=== PATIENT | male | born 1950 | race Hispanic/Latino ===

== ENCOUNTER 2017-10-26 09:28 | Outpatient (CLI) | payer MEDICARE, BC ==
--- NOTE | 2017-10-26 11:41 | MRI ---
MRI LEFT ANKLE WITHOUT CONTRAST: Date: 10/26/17 HISTORY: M25.572, S90.922. Pain. COMPARISON: Radiographs dated 10/09/17. FINDINGS: Ligaments: The ATFL and PITFL are intact. ATFL is thickened, likely from prior tear. CFL is also mildly thickene d. There is a small ossicle of the anterior deep deltoid ligament suggesting prior injury. There is also a small ossicle of ATFL indicating prior injury. Bones: There is a large anterior spur of the talar neck with an adjacent spur of the anterior tibia. Edema i n the adjacent fat. Os peroneus is seen. There is advanced degenerative disease of the 3rd and 4th tarsometatarsal joints, worse at the 2nd ta rsometatarsal joint with large subchondral cysts and erosions. Mild degenerative disease of the navic ular medial cuneiform joint with subchondral cysts and early erosions. There is a focal area of T2 signal hyperintensity within the 4th metatarsal proximal diaphysis, which may reflect an old infarction. Tendons: Peroneus brevis and peroneus longus appear relatively unremarkable. Spring ligament is intact. The short and long plantar calcaneal ligaments are intact. Tendons: Achilles tendon is intact and appears normal. Muscles: There is some edema and some fatty infiltration of the soleus muscle. There is also edema within the adductor hallucis. There is also moderate edema of the flexor and other intrinsic muscles of the feet . Mild edema within the extensor digitorum brevis. Interosseous muscles also have some edema. IMPRESSION: 1. 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 Also, moderate degenerative disease of the 3rd and 4th tarsometatarsal joints. 2. 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 Foot MRI may be beneficial. 3. Multifocal edema of the musculature of the midfoot and hindfoot. This can be seen with post-traum atic reflex sympathetic dystrophy. 4. Evidence of prior injury to the deep deltoid ligament, ATFL, and CFL. 5. Mild tenosynovitis of the extensor digitorum longus tendon, which is abnormal. 6. Some mild fatty atrophy of the soleus muscle. 7. Large anterior spur of the talar neck as well as anterior spur of the tibia, with some edema in t he adjacent fat, can be seen with anterior impingement. POS: [facility]
== END 2017-10-26 09:29 | disposition home or self-care (01) ==
LOC: SCSMRI 09:28
PROVIDERS: ATTEND Podiatrist Foot & Ankle Surgery
DX: S99.912A Unspecified injury of left ankle, initial encounter (principal); R60.9 Edema, unspecified; M62.50 Muscle wasting and atrophy, not elsewhere classified, unspecified site; M76.42 Tibial collateral bursitis [Pellegrini-Stieda], left leg; M19.072 Primary osteoarthritis, left ankle and foot; M65.872 Other synovitis and tenosynovitis, left ankle and foot

== ENCOUNTER 2021-12-01 14:22 | Emergency (ER) | payer MEDICARE, BC ==
[2021-12-01 16:32] LABS: #Eosinphils 0.3 thou/uL (0.0-0.7); #Lymphocytes 2.2 thou/uL (1.20-3.40); #Monocytes 0.6 thou/uL (0.11-0.59); #Neutrophils 6.5 thou/uL (1.40-6.50); %Basophils 0.4 % (0.0-1.0); %Eosinophils 2.8 % (0.0-10.0); %Lymphocytes 22.4 % (21.0-51.0); %Monocytes 6.5 % (0.0-10.0); %Neutrophils 67.9 % (42.0-75.0); Hemoglobin 10.9 g/dL (14.0-18.0); Mean Corpuscular HGB CONC 32.6 g/dL (32.0-36.0); Mean Corpuscular Hemoglobin 29.8 pg (27.0-31.0); Mean Corpuscular Volume 91.6 fL (78.0-98.0); Mean Platelet Volume 7.4 fL (7.4-10.4); Platelet Count 200 thou/uL (130-400); RBC Distribution Width 15.3 % (11.5-14.5); Red Blood Cell (RBC) Count 3.65 mill/uL (4.70-6.10); White Blood Cell (WBC) Count 9.6 thou/uL (4.8-10.8)
[2021-12-01 16:55] LABS: ALT (SGPT) 12 U/L (8-55); AST (SGOT) 8 U/L (5-34); Albumin 3.6 g/dL (3.4-4.8); Alkaline Phosphatase 82 U/L (40-110); Anion Gap 11 mmol/L (10-20); BUN (Urea Nitrogen) 67 mg/dL (8.4-25.7); Bilirubin, Total 0.3 mg/dL (0.2-1.2); Calc. Creatinine Clearance 0 mL/min (70-130); Calcium 8.9 mg/dL (7.8-10.44); Carbon Dioxide 16 mmol/L (23-31); Chloride 117 mmol/L (98-107); Globulin 3.8 g/dL (2.4-3.5); Glucose 86 mg/dL (83-110); Potassium 5.8 mmol/L (3.5-5.1); Protein, Total 7.4 g/dL (5.8-8.1); Sodium 138 mmol/L (136-145)
== END 2021-12-01 20:17 | disposition home or self-care (01) ==
LOC: ERS 14:22
DX: E87.5 Hyperkalemia (principal); E78.5 Hyperlipidemia, unspecified; I10 Essential (primary) hypertension; Z85.51 Personal history of malignant neoplasm of bladder; I25.2 Old myocardial infarction
CPT/HCPCS: 36415; 80053; 84484; 85025; 93005

== ENCOUNTER 2022-07-12 19:00 | Outpatient (CLI) | payer MEDICARE, BC | END 2022-07-12 19:01 | disposition home or self-care (01) | LOC: SLEEPLAB 19:00 | PROVIDERS: ATTEND Physician Assistant | DX: G47.33 Obstructive sleep apnea (adult) (pediatric) (principal); R06.83 Snoring; I27.20 Pulmonary hypertension, unspecified; I11.0 Hypertensive heart disease with heart failure; I50.9 Heart failure, unspecified; I25.10 Atherosclerotic heart disease of native coronary artery without angina pectoris; G47.61 Periodic limb movement disorder | CPT/HCPCS: 95810 ==

== ENCOUNTER 2023-07-12 11:55 | Inpatient (IN) | payer MEDICARE, BC ==
[2023-07-12 12:24] LABS: #Basophils 0.1 thou/uL (0.0-0.2); #Eosinphils 0.3 thou/uL (0.0-0.7); #Monocytes 0.6 thou/uL (0.11-0.59); #Neutrophils 6.4 thou/uL (1.40-6.50); %Basophils 0.7 % (0.0-1.0); %Eosinophils 2.8 % (0.0-10.0); %Lymphocytes 18.6 % (21.0-51.0); %Monocytes 6.5 % (0.0-10.0); %Neutrophils 71.2 % (42.0-75.0); Hematocrit 33.7 % (42.0-52.0); Hemoglobin 10.6 g/dL (14.0-18.0); Mean Corpuscular HGB CONC 31.5 g/dL (32.0-36.0); Mean Corpuscular Hemoglobin 29.7 pg (27.0-31.0); Mean Corpuscular Volume 94.4 fl (78.0-98.0); Mean Platelet Volume 10.7 fL (7.4-10.4); Platelet Count 171 10x3/uL (130-400); RBC Distribution Width 16.9 % (11.5-14.5); Red Blood Cell (RBC) Count 3.57 mill/uL (4.70-6.10)
[2023-07-12 12:51] LABS: ALT (SGPT) 265 U/L (8-55); AST (SGOT) 237 U/L (5-34); Albumin 2.9 g/dL (3.4-4.8); Alkaline Phosphatase 256 U/L (40-110); Anion Gap 14 mmol/L (10-20); BUN (Urea Nitrogen) 115 mg/dL (8.4-25.7); Bilirubin, Total 0.5 mg/dL (0.2-1.2); Calc. Creatinine Clearance 0 mL/min (70-130); Calcium 8.1 mg/dL (7.8-10.44); Carbon Dioxide 11 mmol/L (23-31); Chloride 119 mmol/L (98-107); Estimated GFR 11; Globulin 3.8 g/dL (2.4-3.5); Glucose 86 mg/dL (83-110); Potassium 5.8 mmol/L (3.5-5.1); Protein, Total 6.7 g/dL (5.8-8.1); Sodium 138 mmol/L (136-145)
[2023-07-12] MEDS ORDERED: Glucagon 1 MG/ML KIT IM PRN (14:21)
[2023-07-12] MEDS ORDERED: Dextrose 5% in Water 1,000 ML IV PRN (14:21)
[2023-07-12] MEDS ORDERED: Dextrose 50% Abboject 50 ML SYRINGE SLOW IVP PRN (14:21)
[2023-07-12] MEDS ORDERED: HumaLOG 300 UNITS/3 ML VIAL SC PRN (14:21)
[2023-07-12 15:57] LABS: HBSAB Concentration Less than 8.00 mIU/mL; HBSAg Index 0.17 S/CO (0-0.99); HIV (1/2) Antibody/Antigen Non-Reactive (NonReactive); HIV 1/2 INDEX 0.12 S/CO (<1.00); Hep A IgM AB Non-Reactive S/CO (NonReactive); Hep A IgM S/CO 0.13 S/CO (0-0.79); Hep B Core Total Ab Non-Reactive (NonReactive); Hep B Core Total Index 0.14 S/CO (0-0.79); Hep B Surf AB Non-Reactive (NonReactive); Hep B Surf Ag Non-Reactive S/CO (NonReactive); Hep C IgG Ab Non-Reactive S/CO (NonReactive); Hep C Index 0.25 S/CO (0-0.79)
[2023-07-12] MEDS ORDERED: NIFEdipine XL 30 MG ER.TAB PO SCH (16:30)
[2023-07-12] MEDS: Icosapent Ethyl 1 GM CAPSULE PO SCH (18:20)
[2023-07-12] MEDS ORDERED: HumaLOG 300 UNITS/3 ML VIAL SC SCH (18:45)
[2023-07-12 19:01] LABS: Syphilis Antibody Nonreactive (Nonreactive); Syphilis Antibody Index 0.14 S/CO (<1.00 Non-Reactive)
[2023-07-12] MEDS: EPOETIN ALFA-EPBX (ESRD) 10,000 UNITS/ML VIAL SC SCH (19:01)
[2023-07-12] MEDS: Fluticasone Propionate Nasal Spray 16 gm Bottle NASAL SCH (20:55)
[2023-07-12] MEDS: Betamethasone 0.1% Cream 15 GM TUBE TOP SCH (20:55)
[2023-07-12] MEDS: Heparin 5,000 UNITS/ML VIAL SC SCH (20:58)
[2023-07-12] MEDS ORDERED: Insulin Glargine 30 UNITS/0.3 ML VIAL SC SCH ×2 (21:00)
[2023-07-12] MEDS ORDERED: Hydrocortisone 2.5% Cream 30 GM TUBE TOP SCH (21:00)
[2023-07-13 01:19] LABS: Anion Gap 13 mmol/L (10-20); BUN (Urea Nitrogen) 117 mg/dL (8.4-25.7); Calc. Creatinine Clearance 18 mL/min (70-130); Calcium 7.8 mg/dL (7.8-10.44); Carbon Dioxide 10 mmol/L (23-31); Chloride 123 mmol/L (98-107); Estimated GFR 12; Glucose 92 mg/dL (83-110); Potassium 5.5 mmol/L (3.5-5.1); Sodium 140 mmol/L (136-145)
[2023-07-13 05:13] LABS: #Basophils 0.1 thou/uL (0.0-0.2); #Eosinphils 0.3 thou/uL (0.0-0.7); #Monocytes 0.6 thou/uL (0.11-0.59); #Neutrophils 6.4 thou/uL (1.40-6.50); %Basophils 0.8 % (0.0-1.0); %Eosinophils 3.8 % (0.0-10.0); %Lymphocytes 17.1 % (21.0-51.0); %Monocytes 6.7 % (0.0-10.0); %Neutrophils 71.2 % (42.0-75.0); Hematocrit 30.9 % (42.0-52.0); Hemoglobin 9.5 g/dL (14.0-18.0); Mean Corpuscular HGB CONC 30.7 g/dL (32.0-36.0); Mean Corpuscular Hemoglobin 29.1 pg (27.0-31.0); Mean Corpuscular Volume 94.8 fl (78.0-98.0); Mean Platelet Volume 10.2 fL (7.4-10.4); Platelet Count 152 10x3/uL (130-400); RBC Distribution Width 17.2 % (11.5-14.5); Red Blood Cell (RBC) Count 3.26 mill/uL (4.70-6.10)
[2023-07-13 05:42] LABS: ALT (SGPT) 215 U/L (8-55); AST (SGOT) 177 U/L (5-34); Albumin 2.7 g/dL (3.4-4.8); Alkaline Phosphatase 237 U/L (40-110); Anion Gap 11 mmol/L (10-20); BUN (Urea Nitrogen) 113 mg/dL (8.4-25.7); Bilirubin, Total 0.3 mg/dL (0.2-1.2); Calc. Creatinine Clearance 18 mL/min (70-130); Calcium 7.7 mg/dL (7.8-10.44); Carbon Dioxide 11 mmol/L (23-31); Chloride 123 mmol/L (98-107); Estimated GFR 11; Globulin 3.2 g/dL (2.4-3.5); Glucose 77 mg/dL (83-110); Potassium 5.7 mmol/L (3.5-5.1); Protein, Total 5.9 g/dL (5.8-8.1); Sodium 139 mmol/L (136-145)
[2023-07-13] MEDS: Levothyroxine Sodium 75 MCG TAB PO SCH (06:24)
[2023-07-13] MEDS ORDERED: Tuberculin PPD 0.1 ML VIAL I-DERMAL SCH (08:00)
[2023-07-13] MEDS ORDERED: HumaLOG 300 UNITS/3 ML VIAL SC SCH ×2 (08:00)
[2023-07-13] MEDS: Aspirin Chewable 81 MG TAB PO SCH (08:43)
[2023-07-13] MEDS: Icosapent Ethyl 1 GM CAPSULE PO SCH ×2 (08:43→17:32)
[2023-07-13] MEDS: HumaLOG 300 UNITS/3 ML VIAL SC SCH ×3 (08:44→17:33)
[2023-07-13] MEDS: Ferrous Sulfate 325 MG TAB PO SCH (08:44)
[2023-07-13] MEDS: Betamethasone 0.1% Cream 15 GM TUBE TOP SCH ×2 (08:45→20:08)
[2023-07-13] MEDS: Fluticasone Propionate Nasal Spray 16 gm Bottle NASAL SCH ×2 (08:45→20:08)
[2023-07-13] MEDS: Heparin 5,000 UNITS/ML VIAL SC SCH ×3 (08:45→20:41)
[2023-07-13] MEDS: NIFEdipine XL 30 MG ER.TAB PO SCH (08:51)
[2023-07-13] MEDS ORDERED: Sodium Bicarbonate Tab 325 MG TAB PO SCH (09:00)
[2023-07-13] MEDS ORDERED: Insulin Glargine 30 UNITS/0.3 ML VIAL SC SCH ×2 (09:00)
[2023-07-13] MEDS ORDERED: EPINEPHrine 1 MG/ML VIAL ONE (10:35)
[2023-07-13] MEDS ORDERED: Lidocaine 2% PF 5 ML VIAL ONE ×3 (10:35→11:56)
[2023-07-13] MEDS ORDERED: Heparin 10,000 UNITS/ 10 ML VIAL ONE (10:35)
[2023-07-13] MEDS ORDERED: Bupivacaine PF 0.5% 30 ML VIAL ONE ×2 (10:36→11:54)
[2023-07-13] MEDS ORDERED: CEFAZOLIN 2 GM VIAL ONE (12:31)
[2023-07-13] MEDS ORDERED: Sodium Chloride 0.9% 100 ML ONE (12:32)
[2023-07-13] MEDS ORDERED: fentaNYL 50 mcg/mL 1 mL Vial ONE (12:33)
[2023-07-13] MEDS ORDERED: Propofol 500 MG/50 ML VIAL ONE (12:33)
[2023-07-13] MEDS ORDERED: Famotidine/PF 20 mg/2ml Vial ONE (12:33)
[2023-07-13] MEDS ORDERED: Midazolam HCl 2 mg/2 ml Vial ONE (12:34)
[2023-07-13] MEDS ORDERED: PHENYLEPHRINE-NS 100 MCG/ML 10 ML SYRINGE ONE (12:48)
[2023-07-13] MEDS ORDERED: Ondansetron PF 4 MG/2 ML Vial ONE (12:52)
[2023-07-13] MEDS ORDERED: ePHEDrine Sulfate 50 MG/10 ML VIAL ONE (12:52)
[2023-07-13] MEDS ORDERED: Ondansetron HCl/PF 4 MG/2 ML Vial IVP PRN (13:22)
[2023-07-13] MEDS ORDERED: Promethazine HCl 25 MG/ML VIAL IM PRN (13:22)
[2023-07-13] MEDS: Insulin Glargine 30 UNITS/0.3 ML VIAL SC SCH (21:14)
[2023-07-14 06:01] LABS: #Basophils 0.1 thou/uL (0.0-0.2); #Eosinphils 0.3 thou/uL (0.0-0.7); #Monocytes 0.7 thou/uL (0.11-0.59); #Neutrophils 6.1 thou/uL (1.40-6.50); %Basophils 0.7 % (0.0-1.0); %Eosinophils 3.9 % (0.0-10.0); %Lymphocytes 16.6 % (21.0-51.0); %Monocytes 7.8 % (0.0-10.0); %Neutrophils 70.5 % (42.0-75.0); Hematocrit 29.6 % (42.0-52.0); Mean Corpuscular HGB CONC 30.4 g/dL (32.0-36.0); Mean Corpuscular Hemoglobin 28.8 pg (27.0-31.0); Mean Corpuscular Volume 94.6 fl (78.0-98.0); Mean Platelet Volume 11.1 fL (7.4-10.4); Platelet Count 150 10x3/uL (130-400); RBC Distribution Width 17.2 % (11.5-14.5); Red Blood Cell (RBC) Count 3.13 mill/uL (4.70-6.10); White Blood Cell (WBC) Count 8.7 10x3/uL (4.8-10.8)
[2023-07-14] MEDS: Levothyroxine Sodium 75 MCG TAB PO SCH (06:07)
[2023-07-14 06:25] LABS: ALT (SGPT) 161 U/L (8-55); AST (SGOT) 128 U/L (5-34); Albumin 2.6 g/dL (3.4-4.8); Alkaline Phosphatase 210 U/L (40-110); Anion Gap 12 mmol/L (10-20); BUN (Urea Nitrogen) 92 mg/dL (8.4-25.7); Bilirubin, Total 0.4 mg/dL (0.2-1.2); Calc. Creatinine Clearance 20 mL/min (70-130); Calcium 7.7 mg/dL (7.8-10.44); Carbon Dioxide 13 mmol/L (23-31); Chloride 119 mmol/L (98-107); Estimated GFR 14; Globulin 3.1 g/dL (2.4-3.5); Glucose 140 mg/dL (83-110); Protein, Total 5.7 g/dL (5.8-8.1); Sodium 139 mmol/L (136-145)
[2023-07-14] MEDS: HumaLOG 300 UNITS/3 ML VIAL SC SCH ×2 (11:38→17:31)
[2023-07-14] MEDS: Icosapent Ethyl 1 GM CAPSULE PO SCH ×2 (12:06→18:29)
[2023-07-14] MEDS: Aspirin Chewable 81 MG TAB PO SCH (12:06)
[2023-07-14] MEDS: Ferrous Sulfate 325 MG TAB PO SCH (12:06)
[2023-07-14] MEDS: Fluticasone Propionate Nasal Spray 16 gm Bottle NASAL SCH ×2 (12:07→21:59)
[2023-07-14] MEDS: Heparin 5,000 UNITS/ML VIAL SC SCH ×3 (12:07→22:00)
[2023-07-14] MEDS: Betamethasone 0.1% Cream 15 GM TUBE TOP SCH ×2 (12:07→22:00)
[2023-07-14] MEDS: Insulin Glargine 30 UNITS/0.3 ML VIAL SC SCH ×2 (12:09→21:58)
[2023-07-14] MEDS: NIFEdipine XL 30 MG ER.TAB PO SCH (12:09)
[2023-07-14] MEDS ORDERED: Polyethylene Glycol 3350 17 GM Packet PO PRN (12:25)
[2023-07-14] MEDS: Docusate 100 MG CAP PO PRN (16:01)
[2023-07-15 04:27] LABS: #Basophils 0.1 thou/uL (0.0-0.2); #Eosinphils 0.5 thou/uL (0.0-0.7); #Monocytes 0.7 thou/uL (0.11-0.59); #Neutrophils 5.9 thou/uL (1.40-6.50); %Basophils 0.7 % (0.0-1.0); %Lymphocytes 18.8 % (21.0-51.0); %Neutrophils 66.2 % (42.0-75.0); Hematocrit 27.4 % (42.0-52.0); Hemoglobin 8.7 g/dL (14.0-18.0); Mean Corpuscular HGB CONC 31.8 g/dL (32.0-36.0); Mean Corpuscular Hemoglobin 29.5 pg (27.0-31.0); Mean Corpuscular Volume 92.9 fl (78.0-98.0); Mean Platelet Volume 10.8 fL (7.4-10.4); Platelet Count 153 10x3/uL (130-400); RBC Distribution Width 16.9 % (11.5-14.5); Red Blood Cell (RBC) Count 2.95 mill/uL (4.70-6.10); White Blood Cell (WBC) Count 8.9 10x3/uL (4.8-10.8)
[2023-07-15 04:52] LABS: ALT (SGPT) 119 U/L (8-55); AST (SGOT) 138 U/L (5-34); Albumin 2.4 g/dL (3.4-4.8); Alkaline Phosphatase 196 U/L (40-110); Anion Gap 12 mmol/L (10-20); BUN (Urea Nitrogen) 66 mg/dL (8.4-25.7); Bilirubin, Total 0.4 mg/dL (0.2-1.2); Calc. Creatinine Clearance 24 mL/min (70-130); Calcium 7.6 mg/dL (7.8-10.44); Carbon Dioxide 18 mmol/L (23-31); Chloride 115 mmol/L (98-107); Estimated GFR 16; Globulin 3.2 g/dL (2.4-3.5); Glucose 128 mg/dL (83-110); Potassium 4.3 mmol/L (3.5-5.1); Protein, Total 5.6 g/dL (5.8-8.1); Sodium 141 mmol/L (136-145)
[2023-07-15] MEDS: Levothyroxine Sodium 75 MCG TAB PO SCH (05:49)
[2023-07-15] MEDS: Fluticasone Propionate Nasal Spray 16 gm Bottle NASAL SCH ×2 (08:56→21:29)
[2023-07-15] MEDS: Ferrous Sulfate 325 MG TAB PO SCH (08:58)
[2023-07-15] MEDS: Aspirin Chewable 81 MG TAB PO SCH (08:58)
[2023-07-15] MEDS: NIFEdipine XL 30 MG ER.TAB PO SCH (08:59)
[2023-07-15] MEDS: Icosapent Ethyl 1 GM CAPSULE PO SCH (08:59)
[2023-07-15] MEDS: Betamethasone 0.1% Cream 15 GM TUBE TOP SCH ×2 (08:59→21:29)
[2023-07-15] MEDS: Heparin 5,000 UNITS/ML VIAL SC SCH ×3 (09:00→21:28)
[2023-07-15] MEDS: Insulin Glargine 30 UNITS/0.3 ML VIAL SC SCH ×2 (09:49→21:29)
[2023-07-15] MEDS ORDERED: Heparin 10,000 UNITS/ 10 ML VIAL ONE (10:15)
[2023-07-15] MEDS ORDERED: NIFEdipine XL 30 MG ER.TAB PO SCH (10:27)
[2023-07-15] MEDS ORDERED: Activase 2 MG VIAL CATH SCH ×2 (16:15)
[2023-07-15] MEDS ORDERED: Sterile Water 10 ML VIAL IVP SCH (16:15)
[2023-07-16] MEDS: Levothyroxine Sodium 75 MCG TAB PO SCH (05:15)
[2023-07-16 05:29] LABS: #Basophils 0.1 thou/uL (0.0-0.2); #Eosinphils 0.6 thou/uL (0.0-0.7); #Monocytes 0.7 thou/uL (0.11-0.59); #Neutrophils 5.6 thou/uL (1.40-6.50); %Basophils 0.6 % (0.0-1.0); %Eosinophils 7.3 % (0.0-10.0); %Lymphocytes 19.9 % (21.0-51.0); %Monocytes 8.1 % (0.0-10.0); %Neutrophils 63.9 % (42.0-75.0); Hematocrit 26.7 % (42.0-52.0); Hemoglobin 8.5 g/dL (14.0-18.0); Mean Corpuscular HGB CONC 31.8 g/dL (32.0-36.0); Mean Corpuscular Hemoglobin 29.5 pg (27.0-31.0); Mean Corpuscular Volume 92.7 fl (78.0-98.0); Mean Platelet Volume 9.7 fL (7.4-10.4); Platelet Count 140 10x3/uL (130-400); Red Blood Cell (RBC) Count 2.88 mill/uL (4.70-6.10); White Blood Cell (WBC) Count 8.7 10x3/uL (4.8-10.8)
[2023-07-16 05:52] LABS: ALT (SGPT) 99 U/L (8-55); AST (SGOT) 164 U/L (5-34); Albumin 2.3 g/dL (3.4-4.8); Alkaline Phosphatase 201 U/L (40-110); Anion Gap 11 mmol/L (10-20); BUN (Urea Nitrogen) 42 mg/dL (8.4-25.7); Bilirubin, Total 0.4 mg/dL (0.2-1.2); Calc. Creatinine Clearance 28 mL/min (70-130); Calcium 7.3 mg/dL (7.8-10.44); Carbon Dioxide 22 mmol/L (23-31); Chloride 108 mmol/L (98-107); Estimated GFR 20; Globulin 3.1 g/dL (2.4-3.5); Glucose 100 mg/dL (83-110); Protein, Total 5.4 g/dL (5.8-8.1); Sodium 137 mmol/L (136-145)
[2023-07-16] MEDS: Aspirin Chewable 81 MG TAB PO SCH (08:53)
[2023-07-16] MEDS: Insulin Glargine 30 UNITS/0.3 ML VIAL SC SCH ×2 (08:54→23:32)
[2023-07-16] MEDS: Ferrous Sulfate 325 MG TAB PO SCH (08:56)
[2023-07-16] MEDS: Icosapent Ethyl 1 GM CAPSULE PO SCH ×3 (08:56→17:49)
[2023-07-16] MEDS: Betamethasone 0.1% Cream 15 GM TUBE TOP SCH ×2 (08:56→21:07)
[2023-07-16] MEDS: Heparin 5,000 UNITS/ML VIAL SC SCH ×3 (08:57→21:07)
[2023-07-16] MEDS: Fluticasone Propionate Nasal Spray 16 gm Bottle NASAL SCH ×2 (08:57→21:07)
[2023-07-16] MEDS: Docusate 100 MG CAP PO PRN (09:06)
[2023-07-16] MEDS ORDERED: Sterile Water 10 ML VIAL IVP SCH (09:45)
[2023-07-16] MEDS ORDERED: Activase 2 MG VIAL CATH SCH (09:45)
[2023-07-16] MEDS: HumaLOG 300 UNITS/3 ML VIAL SC PRN (19:09)
[2023-07-17 04:26] LABS: #Basophils 0.1 thou/uL (0.0-0.2); #Eosinphils 0.7 thou/uL (0.0-0.7); #Monocytes 0.9 thou/uL (0.11-0.59); #Neutrophils 5.8 thou/uL (1.40-6.50); %Basophils 0.7 % (0.0-1.0); %Eosinophils 7.5 % (0.0-10.0); %Lymphocytes 20.9 % (21.0-51.0); %Monocytes 9.2 % (0.0-10.0); %Neutrophils 61.3 % (42.0-75.0); Hematocrit 27.6 % (42.0-52.0); Hemoglobin 8.6 g/dL (14.0-18.0); Mean Corpuscular HGB CONC 31.2 g/dL (32.0-36.0); Mean Corpuscular Hemoglobin 29.1 pg (27.0-31.0); Mean Corpuscular Volume 93.2 fl (78.0-98.0); Mean Platelet Volume 10.5 fL (7.4-10.4); Platelet Count 149 10x3/uL (130-400); RBC Distribution Width 16.8 % (11.5-14.5); Red Blood Cell (RBC) Count 2.96 mill/uL (4.70-6.10); White Blood Cell (WBC) Count 9.5 10x3/uL (4.8-10.8)
[2023-07-17 04:50] LABS: Iron 47 ug/dL (65-175); Iron Binding Capacity, Total 178 mcg/dL (261-462)
[2023-07-17 04:54] LABS: ALT (SGPT) 107 U/L (8-55); AST (SGOT) 175 U/L (5-34); Albumin 2.5 g/dL (3.4-4.8); Alkaline Phosphatase 212 U/L (40-110); Anion Gap 13 mmol/L (10-20); BUN (Urea Nitrogen) 49 mg/dL (8.4-25.7); Bilirubin, Total 0.5 mg/dL (0.2-1.2); Calc. Creatinine Clearance 24 mL/min (70-130); Calcium 7.4 mg/dL (7.8-10.44); Carbon Dioxide 21 mmol/L (23-31); Chloride 107 mmol/L (98-107); Estimated GFR 17; Globulin 3.1 g/dL (2.4-3.5); Glucose 116 mg/dL (83-110); Iron 46 ug/dL (65-175); Iron Binding Capacity, Total 174 mcg/dL (261-462); Potassium 4.4 mmol/L (3.5-5.1); Protein, Total 5.6 g/dL (5.8-8.1); Sodium 137 mmol/L (136-145)
[2023-07-17] MEDS: Levothyroxine Sodium 75 MCG TAB PO SCH (05:50)
[2023-07-17] MEDS: Fluticasone Propionate Nasal Spray 16 gm Bottle NASAL SCH ×2 (08:49→20:16)
[2023-07-17] MEDS: Heparin 5,000 UNITS/ML VIAL SC SCH ×3 (08:49→20:16)
[2023-07-17] MEDS: Insulin Glargine 30 UNITS/0.3 ML VIAL SC SCH (08:50)
[2023-07-17] MEDS: Icosapent Ethyl 1 GM CAPSULE PO SCH ×2 (08:50→16:34)
[2023-07-17] MEDS: Ferrous Sulfate 325 MG TAB PO SCH (08:52)
[2023-07-17] MEDS: Aspirin Chewable 81 MG TAB PO SCH (08:52)
[2023-07-17] MEDS: Betamethasone 0.1% Cream 15 GM TUBE TOP SCH ×2 (08:57→20:16)
[2023-07-17] MEDS ORDERED: Insulin Glargine 30 UNITS/0.3 ML VIAL SC SCH ×2 (08:59→09:00)
[2023-07-17] MEDS ORDERED: Iron Sucrose Complex 200 MG in Sodium Chloride 0.9% 100 ML IVPB SCH (09:15)
[2023-07-17] MEDS ORDERED: Iron, Sodium Ferric Gluconate 250 MG in Sodium Chloride 0.9% 250 ML 250 ML IVPB SCH (09:15)
[2023-07-17 13:07] VITALS: BMI 31.2
[2023-07-17] MEDS: HumaLOG 300 UNITS/3 ML VIAL SC PRN ×2 (14:48→17:59)
[2023-07-18] MEDS: Levothyroxine Sodium 75 MCG TAB PO SCH (03:37)
[2023-07-18 04:53] LABS: #Basophils 0.1 thou/uL (0.0-0.2); #Eosinphils 0.7 thou/uL (0.0-0.7); #Monocytes 0.8 thou/uL (0.11-0.59); #Neutrophils 6.1 thou/uL (1.40-6.50); %Basophils 0.6 % (0.0-1.0); %Lymphocytes 19.7 % (21.0-51.0); %Monocytes 8.6 % (0.0-10.0); %Neutrophils 63.5 % (42.0-75.0); Hematocrit 26.4 % (42.0-52.0); Hemoglobin 8.3 g/dL (14.0-18.0); Mean Corpuscular HGB CONC 31.4 g/dL (32.0-36.0); Mean Corpuscular Hemoglobin 29.9 pg (27.0-31.0); Mean Platelet Volume 11.3 fL (7.4-10.4); Platelet Count 155 10x3/uL (130-400); RBC Distribution Width 16.6 % (11.5-14.5); Red Blood Cell (RBC) Count 2.78 mill/uL (4.70-6.10); White Blood Cell (WBC) Count 9.6 10x3/uL (4.8-10.8)
[2023-07-18 05:20] LABS: ALT (SGPT) 102 U/L (8-55); AST (SGOT) 139 U/L (5-34); Albumin 2.4 g/dL (3.4-4.8); Alkaline Phosphatase 216 U/L (40-110); Anion Gap 13 mmol/L (10-20); BUN (Urea Nitrogen) 35 mg/dL (8.4-25.7); Bilirubin, Total 0.5 mg/dL (0.2-1.2); Calc. Creatinine Clearance 27 mL/min (70-130); Calcium 7.5 mg/dL (7.8-10.44); Carbon Dioxide 23 mmol/L (23-31); Chloride 104 mmol/L (98-107); Estimated GFR 19; Globulin 3.1 g/dL (2.4-3.5); Glucose 154 mg/dL (83-110); Protein, Total 5.5 g/dL (5.8-8.1); Sodium 136 mmol/L (136-145)
[2023-07-18] MEDS ORDERED: Iron Sucrose Complex 200 MG in Sodium Chloride 0.9% 100 ML IVPB SCH (08:30)
[2023-07-18] MEDS ORDERED: Iron, Sodium Ferric Gluconate 250 MG in Sodium Chloride 0.9% 250 ML 250 ML IVPB SCH (08:45)
[2023-07-18] MEDS: Icosapent Ethyl 1 GM CAPSULE PO SCH ×2 (09:48→17:20)
[2023-07-18] MEDS: Aspirin Chewable 81 MG TAB PO SCH (09:48)
[2023-07-18] MEDS: Heparin 5,000 UNITS/ML VIAL SC SCH ×3 (09:49→20:49)
[2023-07-18] MEDS: Insulin Glargine 30 UNITS/0.3 ML VIAL SC SCH (09:49)
[2023-07-18] MEDS: Betamethasone 0.1% Cream 15 GM TUBE TOP SCH ×2 (09:50→20:48)
[2023-07-18] MEDS: Fluticasone Propionate Nasal Spray 16 gm Bottle NASAL SCH ×2 (09:50→20:48)
[2023-07-18] MEDS: Calcitriol 0.25 MCG CAP PO SCH (09:54)
[2023-07-18] MEDS: HumaLOG 300 UNITS/3 ML VIAL SC PRN (14:36)
[2023-07-18] MEDS: Docusate 100 MG CAP PO PRN (17:26)
[2023-07-19 05:27] LABS: #Basophils 0.1 thou/uL (0.0-0.2); #Eosinphils 0.7 thou/uL (0.0-0.7); #Monocytes 0.8 thou/uL (0.11-0.59); #Neutrophils 5.9 thou/uL (1.40-6.50); %Basophils 0.7 % (0.0-1.0); %Eosinophils 6.9 % (0.0-10.0); %Lymphocytes 22.8 % (21.0-51.0); %Monocytes 8.6 % (0.0-10.0); %Neutrophils 60.4 % (42.0-75.0); Hemoglobin 8.7 g/dL (14.0-18.0); Mean Corpuscular HGB CONC 31.1 g/dL (32.0-36.0); Mean Corpuscular Hemoglobin 29.3 pg (27.0-31.0); Mean Corpuscular Volume 94.3 fl (78.0-98.0); Mean Platelet Volume 9.8 fL (7.4-10.4); Platelet Count 145 10x3/uL (130-400); RBC Distribution Width 16.7 % (11.5-14.5); Red Blood Cell (RBC) Count 2.97 mill/uL (4.70-6.10); White Blood Cell (WBC) Count 9.8 10x3/uL (4.8-10.8)
[2023-07-19] MEDS: Levothyroxine Sodium 75 MCG TAB PO SCH (05:37)
[2023-07-19 05:55] LABS: ALT (SGPT) 102 U/L (8-55); AST (SGOT) 117 U/L (5-34); Albumin 2.5 g/dL (3.4-4.8); Alkaline Phosphatase 213 U/L (40-110); Anion Gap 12 mmol/L (10-20); BUN (Urea Nitrogen) 43 mg/dL (8.4-25.7); Bilirubin, Total 0.6 mg/dL (0.2-1.2); Calc. Creatinine Clearance 23 mL/min (70-130); Calcium 7.6 mg/dL (7.8-10.44); Carbon Dioxide 21 mmol/L (23-31); Chloride 106 mmol/L (98-107); Estimated GFR 16; Globulin 3.1 g/dL (2.4-3.5); Glucose 88 mg/dL (83-110); Potassium 4.9 mmol/L (3.5-5.1); Protein, Total 5.6 g/dL (5.8-8.1); Sodium 134 mmol/L (136-145)
[2023-07-19] MEDS: Fluticasone Propionate Nasal Spray 16 gm Bottle NASAL SCH (09:45)
[2023-07-19] MEDS: Icosapent Ethyl 1 GM CAPSULE PO SCH ×2 (09:46→17:43)
[2023-07-19] MEDS: Calcitriol 0.25 MCG CAP PO SCH (09:46)
[2023-07-19] MEDS: Insulin Glargine 30 UNITS/0.3 ML VIAL SC SCH (09:46)
[2023-07-19] MEDS: Aspirin Chewable 81 MG TAB PO SCH (09:46)
[2023-07-19] MEDS: Heparin 5,000 UNITS/ML VIAL SC SCH ×2 (09:46→17:43)
[2023-07-19] MEDS: Betamethasone 0.1% Cream 15 GM TUBE TOP SCH (09:53)
[2023-07-19] MEDS ORDERED: Heparin 10,000 UNITS/ 10 ML VIAL ONE (13:31)
[2023-07-19 19:25] VITALS: BP 137/78; TEMP 98
[2023-07-19] MEDS: EPOETIN ALFA-EPBX (ESRD) 10,000 UNITS/ML VIAL SC SCH (20:42)
== END 2023-07-19 21:00 | disposition home or self-care (01) | DRG 640 ==
LOC: ERS 11:55 → ERHOLD 13:59 → 2SW 17:38 → OBSVTOIN 07-13 15:13
PROVIDERS: ADMIT Family Medicine; ATTEND Family Medicine
PROC: 0JH63XZ Insertion of Tunneled Vascular Access Device into Chest Subcutaneous Tissue and Fascia, Percutaneous Approach (ICD-10-PCS; principal; 2023-07-13)
PROC: 02HV33Z Insertion of Infusion Device into Superior Vena Cava, Percutaneous Approach (ICD-10-PCS; 2023-07-13)
PROC: 3E033XZ Introduction of Vasopressor into Peripheral Vein, Percutaneous Approach (ICD-10-PCS; 2023-07-13)
PROC: 5A1D70Z Performance of Urinary Filtration, Intermittent, Less than 6 Hours Per Day (ICD-10-PCS; 2023-07-13)
PROC: 5A1D70Z Performance of Urinary Filtration, Intermittent, Less than 6 Hours Per Day (ICD-10-PCS; 2023-07-14)
PROC: 5A1D70Z Performance of Urinary Filtration, Intermittent, Less than 6 Hours Per Day (ICD-10-PCS; 2023-07-15)
PROC: 5A1D70Z Performance of Urinary Filtration, Intermittent, Less than 6 Hours Per Day (ICD-10-PCS; 2023-07-17)
DX: E87.5 Hyperkalemia (principal); J81.0 Acute pulmonary edema; N18.6 End stage renal disease; I13.2 Hypertensive heart and chronic kidney disease with heart failure and with stage 5 chronic kidney disease, or end stage renal disease; E44.0 Moderate protein-calorie malnutrition; N25.81 Secondary hyperparathyroidism of renal origin; I50.32 Chronic diastolic (congestive) heart failure; E87.21 Acute metabolic acidosis; E87.70 Fluid overload, unspecified; E78.5 Hyperlipidemia, unspecified; E11.22 Type 2 diabetes mellitus with diabetic chronic kidney disease; I25.10 Atherosclerotic heart disease of native coronary artery without angina pectoris; C67.9 Malignant neoplasm of bladder, unspecified; E03.9 Hypothyroidism, unspecified; D63.1 Anemia in chronic kidney disease; R74.01 Elevation of levels of liver transaminase levels; R53.81 Other malaise; D64.9 Anemia, unspecified; I87.2 Venous insufficiency (chronic) (peripheral); J30.9 Allergic rhinitis, unspecified; Z90.89 Acquired absence of other organs; Z95.1 Presence of aortocoronary bypass graft; Z79.899 Other long term (current) drug therapy; Z79.4 Long term (current) use of insulin; Z79.890 Hormone replacement therapy; Z98.890 Other specified postprocedural states
CPT/HCPCS: 36415; 36416; 71045; 76705; 80053; 82728; 83540; 83550; 83970; 84100; 85025; 86580; 86704; 86706; 86709; 86780; 86803; 87340; 87389; 90935; 93005; 96372; 97139; C1752; G0257; G0378; J0171; J1644; J1815; J2001; J2250; J2405; J2704; J2916; J3010; J3490; J7050; J7070; Q5105; S0020; S0028

== ENCOUNTER 2024-04-16 21:25 | Inpatient (IN) | payer MEDICARE, BC ==
[2024-04-16 22:46] VITALS: BMI 28.2
[2024-04-16] MEDS ORDERED: Dextrose 5% in Water 1,000 ML IV PRN (23:28)
[2024-04-16] MEDS ORDERED: Dextrose 50% Abboject 50 ML SYRINGE SLOW IVP PRN (23:28)
[2024-04-16] MEDS ORDERED: Glucagon 1 MG/ML KIT IM PRN (23:28)
[2024-04-17] MEDS: Morphine 2 MG/ML VIAL SLOW IVP PRN (00:11)
[2024-04-17] MEDS: Acetaminophen 325 MG TAB PO PRN (00:11)
[2024-04-17] MEDS: Gabapentin 300 MG CAP PO SCH ×2 (00:11→20:06)
[2024-04-17] MEDS ORDERED: Vancomycin Diaylsis Sliding Scale (Wt 71-99) FS SCH (00:15)
[2024-04-17] MEDS ORDERED: Morphine 2 MG/ML VIAL SLOW IVP PRN (00:18)
[2024-04-17] MEDS: Vancomycin HCl 750 MG in Sodium Chloride 0.9% 250 ML 250 ML IVPB SCH (00:25)
[2024-04-17] MEDS: Piperacillin/Tazobactam 3.375 GM in Sodium Chloride 0.9% 100 ML IVPB SCH (00:25)
[2024-04-17] MEDS: HYDROcodone/Acetaminophen 5/325 mg Tablet PO PRN (00:51)
[2024-04-17] MEDS ORDERED: Piperacillin/Tazobactam 2.25 GM in Sodium Chloride 0.9% 100 ML IVPB SCH (02:15)
[2024-04-17] MEDS: Vancomycin HCl 750 MG VIAL ONE (03:55)
[2024-04-17] MEDS: Morphine 2 MG/ML VIAL ONE (03:55)
[2024-04-17] MEDS: Gabapentin 300 MG CAP ONE (03:55)
[2024-04-17] MEDS: Acetaminophen 325 MG TAB ONE (03:55)
[2024-04-17] MEDS: Piperacillin/Tazobactam 3.375 GM VIAL ONE (03:55)
[2024-04-17] MEDS: HYDROcodone/Acetaminophen 5/325 mg Tablet ONE (03:56)
[2024-04-17] MEDS: Sodium Chloride 0.9% 100 ML ONE (03:56)
[2024-04-17 05:13] LABS: #Basophils 0.08 10x3/uL (0.0-0.2); %Basophils 0.6 % (0.0-1.0); %Eosinophils 0.5 % (0.0-10.0); %Lymphocytes 11.2 % (21.0-51.0); %Monocytes 7.5 % (0.0-10.0); %Neutrophils 79.7 % (42.0-75.0); Hematocrit 39.2 % (42.0-52.0); Hemoglobin 12.4 g/dL (14.0-18.0); Mean Corpuscular HGB CONC 31.6 g/dL (32.0-36.0); Mean Corpuscular Hemoglobin 30.9 pg (27.0-31.0); Mean Corpuscular Volume 97.8 fL (78.0-98.0); Platelet Count 181 10x3/uL (130-400); RBC Distribution Width 16.3 % (11.5-14.5); Red Blood Cell (RBC) Count 4.01 mill/uL (4.70-6.10)
[2024-04-17 05:32] LABS: ALT (SGPT) 35 U/L (8-55); AST (SGOT) 28 U/L (5-34); Albumin 2.6 g/dL (3.4-4.8); Alkaline Phosphatase 166 U/L (40-110); Anion Gap 16 mmol/L (10-20); BUN (Urea Nitrogen) 37 mg/dL (8.4-25.7); Bilirubin, Total 0.7 mg/dL (0.2-1.2); Calc. Creatinine Clearance 16 mL/min (70-130); Calcium 8.5 mg/dL (7.8-10.44); Carbon Dioxide 26 mmol/L (23-31); Chloride 98 mmol/L (98-107); Estimated GFR 12; Globulin 4.4 g/dL (2.4-3.5); Glucose 135 mg/dL (83-110); Potassium 4.5 mmol/L (3.5-5.1); Sodium 135 mmol/L (136-145)
[2024-04-17] MEDS: Levothyroxine Sodium 75 MCG TAB PO SCH (05:49)
[2024-04-17] MEDS: Isosorbide Mononitrate 30 MG ER.TAB PO SCH (08:57)
[2024-04-17] MEDS: Aspirin Chewable 81 MG TAB PO SCH (08:57)
[2024-04-17] MEDS: Heparin 5,000 UNITS/ML VIAL SC SCH (08:57)
[2024-04-17] MEDS: Insulin Lispro 100 UNIT/ML 10 ML VIAL SC SCH ×3 (08:57→18:32)
[2024-04-17] MEDS: NIFEdipine XL 30 MG ER.TAB PO SCH (08:58)
[2024-04-17] MEDS: Meloxicam 15 MG TAB PO SCH (08:59)
[2024-04-17] MEDS: fentaNYL 50 mcg/mL 1 mL Vial SLOW IVP PRN (09:00)
[2024-04-17] MEDS ORDERED: Gabapentin 300 MG CAP PO SCH (09:00)
[2024-04-17 10:35] LABS: HBSAB Concentration 43.83 mIU/mL; HBsAg Index 0.35 S/CO (0-0.99); Hep B Core Total Ab NONREACTIVE (NonReactive); Hep B Core Total Index 0.37 S/CO (0-0.79); Hep B Surf AB REACTIVE (NonReactive); Hep B Surf Ag NONREACTIVE S/CO (NonReactive); Hep C IgG Ab NONREACTIVE S/CO (NonReactive); Hep C Index 0.38 S/CO (0-0.79)
[2024-04-17] MEDS: Diazepam 5 MG TAB PO SCH (11:49)
[2024-04-17] MEDS: Insulin Lispro 100 UNIT/ML 10 ML VIAL SC PRN (20:16)
[2024-04-18 06:53] LABS: %Basophils 0.8 % (0.0-1.0); %Eosinophils 1.9 % (0.0-10.0); %Lymphocytes 13.2 % (21.0-51.0); %Monocytes 7.8 % (0.0-10.0); %Neutrophils 75.9 % (42.0-75.0); Hematocrit 38.6 % (42.0-52.0); Hemoglobin 11.8 g/dL (14.0-18.0); Mean Corpuscular HGB CONC 30.6 g/dL (32.0-36.0); Mean Corpuscular Hemoglobin 30.9 pg (27.0-31.0); Mean Platelet Volume 9.7 fL (7.4-10.4); Platelet Count 174 10x3/uL (130-400); RBC Distribution Width 16.3 % (11.5-14.5); Red Blood Cell (RBC) Count 3.82 mill/uL (4.70-6.10)
[2024-04-18 07:40] LABS: Vancomycin, Trough 14.1 ug/mL
[2024-04-18 07:43] LABS: ALT (SGPT) 40 U/L (8-55); AST (SGOT) 33 U/L (5-34); Albumin 2.2 g/dL (3.4-4.8); Alkaline Phosphatase 176 U/L (40-110); Anion Gap 17 mmol/L (10-20); BUN (Urea Nitrogen) 54 mg/dL (8.4-25.7); Bilirubin, Total 0.5 mg/dL (0.2-1.2); Calc. Creatinine Clearance 14 mL/min (70-130); Calcium 8.2 mg/dL (7.8-10.44); Carbon Dioxide 21 mmol/L (23-31); Chloride 99 mmol/L (98-107); Estimated GFR 9; Globulin 4.4 g/dL (2.4-3.5); Glucose 165 mg/dL (83-110); Potassium 4.7 mmol/L (3.5-5.1); Protein, Total 6.6 g/dL (5.8-8.1); Sodium 132 mmol/L (136-145)
[2024-04-18] MEDS ORDERED: Epoetin (ESRD) 20,000 UNITS/ML MDV SC SCH (09:00)
[2024-04-18] MEDS ORDERED: Heparin 10,000 UNITS/ 10 ML VIAL ONE (09:13)
[2024-04-18] MEDS: Insulin Lispro 100 UNIT/ML 10 ML VIAL SC SCH ×3 (10:47→13:54)
[2024-04-18] MEDS: Atorvastatin Calcium 40 MG TAB PO SCH (13:09)
[2024-04-18] MEDS: Calcitriol 0.25 MCG CAP PO SCH (13:09)
[2024-04-18] MEDS: Losartan 25 MG TAB PO SCH (13:10)
[2024-04-18] MEDS: Icosapent Ethyl 1 GM CAPSULE PO SCH (13:10)
[2024-04-18] MEDS: Ferrous Sulfate 325 MG TAB PO SCH (13:10)
[2024-04-18] MEDS: Insulin Glargine 30 UNITS/0.3 ML VIAL SC SCH (13:11)
[2024-04-18] MEDS: Meloxicam 15 MG TAB PO SCH (13:11)
[2024-04-18] MEDS: EPOETIN ALFA-EPBX (ESRD) 10,000 UNITS/ML VIAL SC SCH (13:36)
[2024-04-18] MEDS: Vancomycin 1 GM in Premix 1 BAG IVPB SCH (16:33)
[2024-04-18] MEDS: Insulin Lispro 100 UNIT/ML 10 ML VIAL SC PRN (17:16)
[2024-04-18] MEDS: Cyproheptadine 4 MG TAB PO SCH (20:18)
[2024-04-19 05:00] LABS: #Basophils 0.06 10x3/uL (0.0-0.2); %Basophils 0.5 % (0.0-1.0); %Eosinophils 2.7 % (0.0-10.0); %Lymphocytes 13.3 % (21.0-51.0); %Monocytes 7.9 % (0.0-10.0); %Neutrophils 74.9 % (42.0-75.0); Hematocrit 37.5 % (42.0-52.0); Hemoglobin 11.9 g/dL (14.0-18.0); Mean Corpuscular HGB CONC 31.7 g/dL (32.0-36.0); Mean Corpuscular Hemoglobin 30.5 pg (27.0-31.0); Mean Corpuscular Volume 96.2 fL (78.0-98.0); Mean Platelet Volume 10.5 fL (7.4-10.4); Platelet Count 201 10x3/uL (130-400); RBC Distribution Width 16.4 % (11.5-14.5)
[2024-04-19 05:37] LABS: ALT (SGPT) 42 U/L (8-55); AST (SGOT) 41 U/L (5-34); Albumin 2.2 g/dL (3.4-4.8); Alkaline Phosphatase 219 U/L (40-110); Anion Gap 13 mmol/L (10-20); BUN (Urea Nitrogen) 41 mg/dL (8.4-25.7); Bilirubin, Total 0.4 mg/dL (0.2-1.2); Calc. Creatinine Clearance 16 mL/min (70-130); Calcium 8.5 mg/dL (7.8-10.44); Carbon Dioxide 26 mmol/L (23-31); Chloride 99 mmol/L (98-107); Estimated GFR 11; Globulin 4.4 g/dL (2.4-3.5); Glucose 213 mg/dL (83-110); Potassium 4.1 mmol/L (3.5-5.1); Protein, Total 6.6 g/dL (5.8-8.1); Sodium 134 mmol/L (136-145)
[2024-04-19] MEDS: Insulin Lispro 100 UNIT/ML 10 ML VIAL SC SCH (08:56)
[2024-04-19] MEDS ORDERED: Lidocaine 1% PF 5 ML VIAL ONE (11:52)
[2024-04-19] MEDS ORDERED: fentaNYL PF 100 MCG/2 ML SYRINGE ONE (11:52)
[2024-04-19] MEDS ORDERED: Ondansetron PF 4 MG/2 ML Vial ONE (11:52)
[2024-04-19] MEDS ORDERED: PROPOFOL 20 ML ONE (11:52)
[2024-04-19] MEDS ORDERED: Rocuronium Bromide 10 MG/ML (10ML VIAL) ONE (11:52)
[2024-04-19] MEDS ORDERED: SUCCINYLCHOLINE/SOD CL,ISO/PF 200 MG/10 ML SYRINGE FS ONE (11:52)
[2024-04-19] MEDS ORDERED: ePHEDrine Sulfate 50 MG/10 ML VIAL ONE (11:56)
[2024-04-19] MEDS ORDERED: PHENYLEPHRINE-NS 100 MCG/ML 10 ML SYRINGE ONE (11:56)
[2024-04-19] MEDS ORDERED: fentaNYL 50 mcg/mL 1 mL Vial ONE (13:52)
[2024-04-19] MEDS: Piperacillin/Tazobactam 3.375 GM in Sodium Chloride 0.9% 100 ML IVPB SCH ×2 (15:18→20:14)
[2024-04-19] MEDS: FLU (Fluad Triv) TS24-25 (65UP)/MF59C/PF 45 MCG/0.5 ML Syringe IM ONE (15:31)
[2024-04-19] MEDS: HYDROcodone/Acetaminophen 5/325 mg Tablet PO PRN (17:08)
[2024-04-20 05:12] LABS: #Basophils 0.06 10x3/uL (0.0-0.2); %Basophils 0.6 % (0.0-1.0); %Eosinophils 2.9 % (0.0-10.0); %Monocytes 7.4 % (0.0-10.0); %Neutrophils 74.7 % (42.0-75.0); Hematocrit 35.6 % (42.0-52.0); Mean Corpuscular HGB CONC 30.9 g/dL (32.0-36.0); Mean Corpuscular Volume 100.3 fL (78.0-98.0); Mean Platelet Volume 9.8 fL (7.4-10.4); Platelet Count 203 10x3/uL (130-400); RBC Distribution Width 16.3 % (11.5-14.5); Red Blood Cell (RBC) Count 3.55 mill/uL (4.70-6.10)
[2024-04-20 05:32] LABS: Vancomycin, Trough 18.3 ug/mL
[2024-04-20 05:54] LABS: ALT (SGPT) 48 U/L (8-55); AST (SGOT) 39 U/L (5-34); Albumin 2.1 g/dL (3.4-4.8); Alkaline Phosphatase 248 U/L (40-110); Anion Gap 16 mmol/L (10-20); BUN (Urea Nitrogen) 55 mg/dL (8.4-25.7); Bilirubin, Total 0.3 mg/dL (0.2-1.2); Calc. Creatinine Clearance 13 mL/min (70-130); Calcium 8.5 mg/dL (7.8-10.44); Carbon Dioxide 23 mmol/L (23-31); Chloride 99 mmol/L (98-107); Estimated GFR 9; Globulin 4.4 g/dL (2.4-3.5); Glucose 279 mg/dL (83-110); Potassium 4.5 mmol/L (3.5-5.1); Protein, Total 6.5 g/dL (5.8-8.1); Sodium 133 mmol/L (136-145)
[2024-04-20] MEDS: NIFEdipine XL 60 MG ER.TAB PO SCH (12:39)
[2024-04-20] MEDS: HYDROcodone/Acetaminophen 5/325 mg Tablet PO PRN (14:48)
[2024-04-20] MEDS: Vancomycin HCl 750 MG in Sodium Chloride 0.9% 250 ML 250 ML IVPB SCH (16:42)
[2024-04-20] MEDS: Polyethylene Glycol 3350 17 GM Packet PO SCH (20:27)
[2024-04-20] MEDS: Senokot S 8.6-50 MG TAB PO SCH (20:31)
[2024-04-21] MEDS: fentaNYL 50 mcg/mL 1 mL Vial SLOW IVP PRN (00:36)
[2024-04-21 06:01] LABS: #Basophils 0.04 10x3/uL (0.0-0.2); %Basophils 0.3 % (0.0-1.0); %Eosinophils 2.1 % (0.0-10.0); %Lymphocytes 14.6 % (21.0-51.0); %Monocytes 7.1 % (0.0-10.0); %Neutrophils 75.5 % (42.0-75.0); Hematocrit 36.3 % (42.0-52.0); Hemoglobin 11.3 g/dL (14.0-18.0); Mean Corpuscular HGB CONC 31.1 g/dL (32.0-36.0); Mean Corpuscular Hemoglobin 30.1 pg (27.0-31.0); Mean Corpuscular Volume 96.5 fL (78.0-98.0); Mean Platelet Volume 9.8 fL (7.4-10.4); Platelet Count 220 10x3/uL (130-400); RBC Distribution Width 15.9 % (11.5-14.5); Red Blood Cell (RBC) Count 3.76 mill/uL (4.70-6.10)
[2024-04-21 06:27] LABS: ALT (SGPT) 54 U/L (8-55); AST (SGOT) 39 U/L (5-34); Albumin 2.1 g/dL (3.4-4.8); Alkaline Phosphatase 312 U/L (40-110); Anion Gap 13 mmol/L (10-20); BUN (Urea Nitrogen) 36 mg/dL (8.4-25.7); Bilirubin, Total 0.4 mg/dL (0.2-1.2); Calc. Creatinine Clearance 16 mL/min (70-130); Calcium 8.4 mg/dL (7.8-10.44); Carbon Dioxide 24 mmol/L (23-31); Chloride 100 mmol/L (98-107); Estimated GFR 11; Globulin 4.7 g/dL (2.4-3.5); Glucose 210 mg/dL (83-110); Potassium 4.3 mmol/L (3.5-5.1); Protein, Total 6.8 g/dL (5.8-8.1); Sodium 133 mmol/L (136-145)
[2024-04-21] MEDS: NIFEdipine XL 60 MG ER.TAB PO SCH (08:53)
[2024-04-21] MEDS: Polyethylene Glycol 3350 17 GM Packet PO SCH (08:54)
[2024-04-21] MEDS: Losartan 25 MG TAB PO SCH (11:09)
[2024-04-21] MEDS: Insulin Glargine 30 UNITS/0.3 ML VIAL SC SCH (12:57)
[2024-04-22] MEDS: Labetalol HCl 100 MG/20 ML VIAL SLOW IVP PRN (01:52)
[2024-04-22 06:21] LABS: #Basophils 0.05 10x3/uL (0.0-0.2); %Basophils 0.4 % (0.0-1.0); %Lymphocytes 15.1 % (21.0-51.0); %Monocytes 6.8 % (0.0-10.0); %Neutrophils 74.4 % (42.0-75.0); Hematocrit 35.6 % (42.0-52.0); Hemoglobin 11.2 g/dL (14.0-18.0); Mean Corpuscular HGB CONC 31.5 g/dL (32.0-36.0); Mean Corpuscular Hemoglobin 30.4 pg (27.0-31.0); Mean Corpuscular Volume 96.5 fL (78.0-98.0); Mean Platelet Volume 10.1 fL (7.4-10.4); Platelet Count 233 10x3/uL (130-400); RBC Distribution Width 15.9 % (11.5-14.5); Red Blood Cell (RBC) Count 3.69 mill/uL (4.70-6.10)
[2024-04-22 06:49] LABS: ALT (SGPT) 66 U/L (8-55); AST (SGOT) 44 U/L (5-34); Albumin 2.1 g/dL (3.4-4.8); Alkaline Phosphatase 289 U/L (40-110); Anion Gap 19 mmol/L (10-20); BUN (Urea Nitrogen) 51 mg/dL (8.4-25.7); Bilirubin, Total 0.4 mg/dL (0.2-1.2); Calc. Creatinine Clearance 13 mL/min (70-130); Calcium 8.6 mg/dL (7.8-10.44); Carbon Dioxide 22 mmol/L (23-31); Chloride 99 mmol/L (98-107); Estimated GFR 8; Globulin 4.6 g/dL (2.4-3.5); Glucose 207 mg/dL (83-110); Potassium 4.6 mmol/L (3.5-5.1); Protein, Total 6.7 g/dL (5.8-8.1); Sodium 135 mmol/L (136-145)
[2024-04-22] MEDS: Losartan 25 MG TAB PO SCH (08:51)
[2024-04-22] MEDS: Insulin Glargine 30 UNITS/0.3 ML VIAL SC SCH (08:53)
[2024-04-22] MEDS ORDERED: HYDROcodone/Acetaminophen 10/325 mg Tablet PO PRN ×2 (22:05→22:07)
[2024-04-22] MEDS ORDERED: HYDROcodone/Acetaminophen 5/325 mg Tablet PO PRN (22:07)
[2024-04-23 01:27] LABS: ALT (SGPT) 66 U/L (8-55); AST (SGOT) 39 U/L (5-34); Albumin 2.1 g/dL (3.4-4.8); Alkaline Phosphatase 270 U/L (40-110); Bilirubin, Direct 0.2 mg/dL (0.1-0.3); Bilirubin, Total 0.4 mg/dL (0.2-1.2)
[2024-04-23 05:26] LABS: #Basophils 0.09 10x3/uL (0.0-0.2); %Basophils 0.7 % (0.0-1.0); %Eosinophils 3.4 % (0.0-10.0); %Lymphocytes 15.8 % (21.0-51.0); %Monocytes 5.7 % (0.0-10.0); Hematocrit 39.2 % (42.0-52.0); Mean Corpuscular HGB CONC 30.6 g/dL (32.0-36.0); Mean Corpuscular Hemoglobin 30.8 pg (27.0-31.0); Mean Corpuscular Volume 100.8 fL (78.0-98.0); Mean Platelet Volume 9.5 fL (7.4-10.4); Platelet Count 245 10x3/uL (130-400); RBC Distribution Width 16.3 % (11.5-14.5); Red Blood Cell (RBC) Count 3.89 mill/uL (4.70-6.10)
[2024-04-23 05:48] LABS: ALT (SGPT) 71 U/L (8-55); AST (SGOT) 42 U/L (5-34); Albumin 2.2 g/dL (3.4-4.8); Alkaline Phosphatase 292 U/L (40-110); Anion Gap 18 mmol/L (10-20); BUN (Urea Nitrogen) 62 mg/dL (8.4-25.7); Bilirubin, Total 0.4 mg/dL (0.2-1.2); Calc. Creatinine Clearance 10 mL/min (70-130); Calcium 9.2 mg/dL (7.8-10.44); Carbon Dioxide 19 mmol/L (23-31); Chloride 104 mmol/L (98-107); Estimated GFR 7; Globulin 5.1 g/dL (2.4-3.5); Glucose 159 mg/dL (83-110); Protein, Total 7.3 g/dL (5.8-8.1); Sodium 135 mmol/L (136-145)
[2024-04-23 07:23] LABS: Anion Gap 19 mmol/L (10-20); BUN (Urea Nitrogen) 62 mg/dL (8.4-25.7); Calc. Creatinine Clearance 11 mL/min (70-130); Calcium 9.1 mg/dL (7.8-10.44); Carbon Dioxide 18 mmol/L (23-31); Chloride 104 mmol/L (98-107); Estimated GFR 7; Glucose 162 mg/dL (83-110); Sodium 135 mmol/L (136-145)
[2024-04-23] MEDS ORDERED: Heparin 10,000 UNITS/ 10 ML VIAL ONE (08:50)
[2024-04-23] MEDS: HYDROcodone/Acetaminophen 10/325 mg Tablet PO PRN (11:23)
[2024-04-23] MEDS: Ergocalciferol 1.25 MG(50,000 UNITS) CAP PO SCH (13:43)
[2024-04-24 05:56] LABS: #Basophils 0.09 10x3/uL (0.0-0.2); %Basophils 0.6 % (0.0-1.0); %Eosinophils 2.4 % (0.0-10.0); %Lymphocytes 13.1 % (21.0-51.0); %Monocytes 6.9 % (0.0-10.0); %Neutrophils 76.5 % (42.0-75.0); Hematocrit 36.6 % (42.0-52.0); Hemoglobin 11.3 g/dL (14.0-18.0); Mean Corpuscular HGB CONC 30.9 g/dL (32.0-36.0); Mean Corpuscular Hemoglobin 30.8 pg (27.0-31.0); Mean Corpuscular Volume 99.7 fL (78.0-98.0); Mean Platelet Volume 9.6 fL (7.4-10.4); Platelet Count 266 10x3/uL (130-400); RBC Distribution Width 16.2 % (11.5-14.5); Red Blood Cell (RBC) Count 3.67 mill/uL (4.70-6.10)
[2024-04-24 06:32] LABS: ALT (SGPT) 57 U/L (8-55); AST (SGOT) 34 U/L (5-34); Albumin 2.3 g/dL (3.4-4.8); Alkaline Phosphatase 281 U/L (40-110); Anion Gap 17 mmol/L (10-20); BUN (Urea Nitrogen) 39 mg/dL (8.4-25.7); Bilirubin, Total 0.5 mg/dL (0.2-1.2); Calc. Creatinine Clearance 15 mL/min (70-130); Calcium 9.3 mg/dL (7.8-10.44); Carbon Dioxide 24 mmol/L (23-31); Chloride 100 mmol/L (98-107); Estimated GFR 10; Globulin 5.2 g/dL (2.4-3.5); Glucose 140 mg/dL (83-110); Potassium 4.7 mmol/L (3.5-5.1); Protein, Total 7.5 g/dL (5.8-8.1); Sodium 136 mmol/L (136-145)
[2024-04-24 08:34] LABS: Reference Lab Name LABCORP
[2024-04-24 11:58] VITALS: BMI 28.6
[2024-04-24] MEDS ORDERED: guaiFENesin 200 MG TAB PO PRN (18:49)
[2024-04-25 04:49] LABS: #Basophils 0.06 10x3/uL (0.0-0.2); %Basophils 0.5 % (0.0-1.0); %Eosinophils 2.4 % (0.0-10.0); %Lymphocytes 14.8 % (21.0-51.0); %Monocytes 7.1 % (0.0-10.0); %Neutrophils 74.9 % (42.0-75.0); Hematocrit 34.7 % (42.0-52.0); Hemoglobin 11.1 g/dL (14.0-18.0); Mean Corpuscular Volume 96.9 fL (78.0-98.0); Mean Platelet Volume 9.5 fL (7.4-10.4); Platelet Count 235 10x3/uL (130-400); RBC Distribution Width 16.1 % (11.5-14.5); Red Blood Cell (RBC) Count 3.58 mill/uL (4.70-6.10)
[2024-04-25 05:11] LABS: Phosphorus 4.8 mg/dL (2.3-4.7)
[2024-04-25 05:14] LABS: ALT (SGPT) 47 U/L (8-55); AST (SGOT) 30 U/L (5-34); Albumin 2.1 g/dL (3.4-4.8); Alkaline Phosphatase 269 U/L (40-110); Anion Gap 16 mmol/L (10-20); BUN (Urea Nitrogen) 60 mg/dL (8.4-25.7); Bilirubin, Total 0.4 mg/dL (0.2-1.2); Calc. Creatinine Clearance 12 mL/min (70-130); Calcium 8.9 mg/dL (7.8-10.44); Carbon Dioxide 22 mmol/L (23-31); Chloride 101 mmol/L (98-107); Estimated GFR 8; Glucose 193 mg/dL (83-110); Potassium 4.7 mmol/L (3.5-5.1); Protein, Total 7.1 g/dL (5.8-8.1); Sodium 134 mmol/L (136-145)
[2024-04-26 06:49] LABS: %Basophils 0.9 % (0.0-1.0); %Eosinophils 3.5 % (0.0-10.0); %Lymphocytes 17.7 % (21.0-51.0); %Monocytes 7.5 % (0.0-10.0); %Neutrophils 70.1 % (42.0-75.0); Hematocrit 36.6 % (42.0-52.0); Hemoglobin 11.7 g/dL (14.0-18.0); Mean Corpuscular Hemoglobin 30.8 pg (27.0-31.0); Mean Corpuscular Volume 96.3 fL (78.0-98.0); Mean Platelet Volume 9.8 fL (7.4-10.4); Platelet Count 278 10x3/uL (130-400); RBC Distribution Width 16.1 % (11.5-14.5)
[2024-04-26 07:05] LABS: ALT (SGPT) 54 U/L (8-55); AST (SGOT) 36 U/L (5-34); Albumin 2.2 g/dL (3.4-4.8); Alkaline Phosphatase 319 U/L (40-110); Anion Gap 17 mmol/L (10-20); BUN (Urea Nitrogen) 42 mg/dL (8.4-25.7); Bilirubin, Total 0.4 mg/dL (0.2-1.2); Calc. Creatinine Clearance 17 mL/min (70-130); Calcium 9.3 mg/dL (7.8-10.44); Carbon Dioxide 25 mmol/L (23-31); Chloride 97 mmol/L (98-107); Estimated GFR 12; Globulin 5.4 g/dL (2.4-3.5); Glucose 198 mg/dL (83-110); Potassium 4.2 mmol/L (3.5-5.1); Protein, Total 7.6 g/dL (5.8-8.1); Sodium 135 mmol/L (136-145)
[2024-04-26 19:47] VITALS: BP 123/57; TEMP 98.9
[2024-04-26] MEDS: Losartan 25 MG TAB PO SCH (19:58)
== END 2024-04-26 21:50 | DRG 853 ==
LOC: T4-A 22:27
PROVIDERS: ADMIT Student in an Organized Health Care Education/Training Program; ATTEND Student in an Organized Health Care Education/Training Program
PROC: 3E03329 Introduction of Other Anti-infective into Peripheral Vein, Percutaneous Approach (ICD-10-PCS; 2024-04-17)
PROC: 0KBV0ZZ Excision of Right Foot Muscle, Open Approach (ICD-10-PCS; principal; 2024-04-19)
DX: A41.9 Sepsis, unspecified organism (principal); N18.6 End stage renal disease; E87.1 Hypo-osmolality and hyponatremia; I50.32 Chronic diastolic (congestive) heart failure; I13.2 Hypertensive heart and chronic kidney disease with heart failure and with stage 5 chronic kidney disease, or end stage renal disease; L03.115 Cellulitis of right lower limb; L02.611 Cutaneous abscess of right foot; E03.9 Hypothyroidism, unspecified; F41.9 Anxiety disorder, unspecified; D63.1 Anemia in chronic kidney disease; E83.39 Other disorders of phosphorus metabolism; C67.9 Malignant neoplasm of bladder, unspecified; E11.22 Type 2 diabetes mellitus with diabetic chronic kidney disease; I25.10 Atherosclerotic heart disease of native coronary artery without angina pectoris; Z95.1 Presence of aortocoronary bypass graft; Z98.890 Other specified postprocedural states; Z99.2 Dependence on renal dialysis; Z79.82 Long term (current) use of aspirin; Z79.899 Other long term (current) drug therapy; Z79.4 Long term (current) use of insulin; Z79.890 Hormone replacement therapy
CPT/HCPCS: 36415; 36416; 71045; 80053; 80202; 81001; 83605; 84100; 84145; 85025; 86140; 86141; 86704; 86706; 86803; 87040; 87070; 87076; 87077; 87086; 87186; 87205; 87340; 90653; 96365; 96367; 96375; 97139; A6212; J1644; J1815; J2272; J2405; J2543; J2704; J3010; J3370; J3370-JW; J7050

== ENCOUNTER 2024-05-01 14:21 | Inpatient (IN) | payer MEDICARE, BC ==
[2024-05-01 19:45] VITALS: BMI 28.1
[2024-05-01] MEDS ORDERED: Dextrose 50% Abboject 50 ML SYRINGE SLOW IVP PRN (23:01)
[2024-05-01] MEDS ORDERED: Dextrose 5% in Water 1,000 ML IV PRN (23:01)
[2024-05-01] MEDS ORDERED: Glucagon 1 MG/ML KIT IM PRN (23:01)
[2024-05-02] MEDS: Labetalol HCl 100 MG/20 ML VIAL SLOW IVP PRN (00:59)
[2024-05-02] MEDS: Guaifenesin DM 100-10/5 ML UDCUP PO PRN (01:00)
[2024-05-02 02:07] LABS: #Basophils 0.12 10x3/uL (0.0-0.2); %Basophils 0.9 % (0.0-1.0); %Eosinophils 2.9 % (0.0-10.0); %Monocytes 6.5 % (0.0-10.0); %Neutrophils 66.4 % (42.0-75.0); Hematocrit 33.1 % (42.0-52.0); Hemoglobin 10.2 g/dL (14.0-18.0); Mean Corpuscular HGB CONC 30.8 g/dL (32.0-36.0); Mean Corpuscular Hemoglobin 30.7 pg (27.0-31.0); Mean Corpuscular Volume 99.7 fL (78.0-98.0); Mean Platelet Volume 9.4 fL (7.4-10.4); Platelet Count 281 10x3/uL (130-400); RBC Distribution Width 15.7 % (11.5-14.5); Red Blood Cell (RBC) Count 3.32 mill/uL (4.70-6.10)
[2024-05-02 02:24] LABS: Glucose 199 mg/dL (83-110)
[2024-05-02 03:03] LABS: Anion Gap 18 mmol/L (10-20); BUN (Urea Nitrogen) 59 mg/dL (8.4-25.7); Calc. Creatinine Clearance 13 mL/min (70-130); Calcium 8.8 mg/dL (7.8-10.44); Carbon Dioxide 22 mmol/L (23-31); Chloride 99 mmol/L (98-107); Estimated GFR 9; Glucose 200 mg/dL (83-110); Potassium 4.3 mmol/L (3.5-5.1); Sodium 135 mmol/L (136-145)
[2024-05-02] MEDS: Levothyroxine Sodium 75 MCG TAB PO SCH (05:03)
[2024-05-02 07:17] LABS: Glucose 161 mg/dL (83-110)
[2024-05-02] MEDS: NIFEdipine XL 60 MG ER.TAB PO SCH (08:22)
[2024-05-02] MEDS: Icosapent Ethyl 1 GM CAPSULE PO SCH (08:22)
[2024-05-02] MEDS: HYDROcodone/Acetaminophen 10/325 mg Tablet PO PRN (08:23)
[2024-05-02] MEDS: Calcitriol 0.25 MCG CAP PO SCH (08:23)
[2024-05-02] MEDS: Atorvastatin Calcium 40 MG TAB PO SCH (08:23)
[2024-05-02] MEDS: Isosorbide Mononitrate 30 MG ER.TAB PO SCH (08:23)
[2024-05-02] MEDS: Aspirin Chewable 81 MG TAB PO SCH (08:24)
[2024-05-02] MEDS: Ferrous Sulfate 325 MG TAB PO SCH (08:24)
[2024-05-02] MEDS: Sevelamer Carbonate 800 MG TAB PO SCH (08:26)
[2024-05-02] MEDS: Insulin Lispro 100 UNIT/ML 10 ML VIAL SC SCH (08:26)
[2024-05-02] MEDS: Polyethylene Glycol 3350 17 GM Packet PO SCH (08:26)
[2024-05-02] MEDS: Insulin Glargine 30 UNITS/0.3 ML VIAL SC SCH (08:27)
[2024-05-02] MEDS: Senokot S 8.6-50 MG TAB PO SCH (08:27)
[2024-05-02] MEDS: Heparin 5,000 UNITS/ML VIAL SC SCH (08:27)
[2024-05-02 09:12] LABS: Glucose 168 mg/dL (83-110)
[2024-05-02] MEDS: Meclizine HCl 25 MG TAB PO SCH (09:20)
[2024-05-02 10:12] VITALS: BMI 28.1
[2024-05-02 11:57] LABS: Glucose 155 mg/dL (83-110)
[2024-05-02] MEDS: fentaNYL 50 mcg/mL 1 mL Vial SLOW IVP PRN (12:23)
[2024-05-02] MEDS: Gabapentin 300 MG CAP PO SCH (12:24)
[2024-05-02 13:40] LABS: Glucose 141 mg/dL (83-110)
[2024-05-02] MEDS: Meropenem 500 MG in Sodium Chloride 0.9% 100 ML IVPB SCH (17:05)
[2024-05-02 17:44] LABS: Glucose 166 mg/dL (83-110)
[2024-05-02] MEDS: Cyproheptadine 4 MG TAB PO SCH (21:31)
[2024-05-02] MEDS: Losartan 25 MG TAB PO SCH (21:32)
[2024-05-02] MEDS: Famotidine 20 MG TAB PO SCH (21:32)
[2024-05-02 21:54] LABS: Glucose 205 mg/dL (83-110)
[2024-05-02] MEDS: Insulin Lispro 100 UNIT/ML 10 ML VIAL SC PRN (22:32)
[2024-05-03 05:57] LABS: #Basophils 0.11 10x3/uL (0.0-0.2); %Eosinophils 4.2 % (0.0-10.0); %Lymphocytes 20.6 % (21.0-51.0); %Monocytes 7.8 % (0.0-10.0); Hematocrit 31.1 % (42.0-52.0); Mean Corpuscular HGB CONC 32.2 g/dL (32.0-36.0); Mean Corpuscular Hemoglobin 30.6 pg (27.0-31.0); Mean Corpuscular Volume 95.1 fL (78.0-98.0); Mean Platelet Volume 9.4 fL (7.4-10.4); Platelet Count 273 10x3/uL (130-400); RBC Distribution Width 15.6 % (11.5-14.5); Red Blood Cell (RBC) Count 3.27 mill/uL (4.70-6.10)
[2024-05-03 06:19] LABS: Anion Gap 16 mmol/L (10-20); BUN (Urea Nitrogen) 37 mg/dL (8.4-25.7); Calc. Creatinine Clearance 18 mL/min (70-130); Calcium 8.7 mg/dL (7.8-10.44); Carbon Dioxide 25 mmol/L (23-31); Chloride 102 mmol/L (98-107); Estimated GFR 13; Glucose 121 mg/dL (83-110); Potassium 4.4 mmol/L (3.5-5.1); Sodium 139 mmol/L (136-145)
[2024-05-03] MEDS: hydrALAZINE 20 MG/ML VIAL SLOW IVP PRN (06:35)
[2024-05-03] MEDS ORDERED: NIFEdipine XL 30 MG ER.TAB PO ONE (08:30)
[2024-05-03] MEDS: Insulin Glargine 30 UNITS/0.3 ML VIAL SC SCH (08:49)
[2024-05-03] MEDS: Insulin Lispro 100 UNIT/ML 10 ML VIAL SC SCH ×3 (08:50→16:16)
[2024-05-03] MEDS: NIFEdipine XL 90 MG ER.TAB PO SCH (09:04)
[2024-05-03 09:10] LABS: Glucose 125 mg/dL (83-110)
[2024-05-03] MEDS ORDERED: Epoetin (ESRD) 20,000 UNITS/ML MDV SC SCH (09:45)
[2024-05-03 12:05] LABS: Glucose 151 mg/dL (83-110)
[2024-05-03] MEDS: EPOETIN ALFA-EPBX (ESRD) 10,000 UNITS/ML VIAL SC SCH (13:38)
[2024-05-03 21:04] LABS: Glucose 168 mg/dL (83-110)
[2024-05-03] MEDS: Gabapentin 300 MG CAP PO SCH (21:33)
[2024-05-04 07:42] LABS: Glucose 157 mg/dL (83-110)
[2024-05-04 12:05] LABS: Glucose 182 mg/dL (83-110)
[2024-05-04 18:22] LABS: Glucose 132 mg/dL (83-110)
[2024-05-04] MEDS: Insulin Lispro 100 UNIT/ML 10 ML VIAL SC SCH (18:23)
[2024-05-04 21:08] LABS: Glucose 189 mg/dL (83-110)
[2024-05-05 05:27] LABS: #Basophils 0.12 10x3/uL (0.0-0.2); %Basophils 1.1 % (0.0-1.0); %Eosinophils 4.9 % (0.0-10.0); %Lymphocytes 20.2 % (21.0-51.0); %Monocytes 6.6 % (0.0-10.0); %Neutrophils 66.7 % (42.0-75.0); Hematocrit 32.7 % (42.0-52.0); Hemoglobin 10.5 g/dL (14.0-18.0); Mean Corpuscular HGB CONC 32.1 g/dL (32.0-36.0); Mean Corpuscular Hemoglobin 30.3 pg (27.0-31.0); Mean Corpuscular Volume 94.2 fL (78.0-98.0); Mean Platelet Volume 9.3 fL (7.4-10.4); Platelet Count 258 10x3/uL (130-400); RBC Distribution Width 15.2 % (11.5-14.5); Red Blood Cell (RBC) Count 3.47 mill/uL (4.70-6.10)
[2024-05-05 08:03] LABS: Glucose 145 mg/dL (83-110)
[2024-05-05 08:06] LABS: Albumin 2.2 g/dL (3.4-4.8); Anion Gap 15 mmol/L (10-20); BUN (Urea Nitrogen) 36 mg/dL (8.4-25.7); BUN/Creatinine Ratio 9.35; Calc. Creatinine Clearance 21 mL/min (70-130); Calcium 8.9 mg/dL (7.8-10.44); Carbon Dioxide 24 mmol/L (23-31); Chloride 102 mmol/L (98-107); Estimated GFR 16; Glucose 138 mg/dL (83-110); Phosphorus 3.7 mg/dL (2.3-4.7); Potassium 4.3 mmol/L (3.5-5.1); Sodium 137 mmol/L (136-145)
[2024-05-05] MEDS: Losartan 25 MG TAB PO SCH (11:26)
[2024-05-05 11:56] LABS: Glucose 247 mg/dL (83-110)
[2024-05-05 17:23] LABS: Glucose 84 mg/dL (83-110)
[2024-05-05] MEDS: NIFEdipine XL 30 MG ER.TAB PO SCH (21:57)
[2024-05-05 22:04] LABS: Glucose 239 mg/dL (83-110)
[2024-05-06 07:48] LABS: Glucose 187 mg/dL (83-110)
[2024-05-06] MEDS: NIFEdipine XL 60 MG ER.TAB PO SCH (08:16)
[2024-05-06 12:03] LABS: Glucose 204 mg/dL (83-110)
[2024-05-06] MEDS: Acetaminophen 325 MG TAB PO PRN (15:36)
[2024-05-07 05:36] LABS: #Basophils 0.12 10x3/uL (0.0-0.2); %Eosinophils 4.2 % (0.0-10.0); %Lymphocytes 23.9 % (21.0-51.0); %Monocytes 6.3 % (0.0-10.0); %Neutrophils 63.9 % (42.0-75.0); Hematocrit 28.9 % (42.0-52.0); Hemoglobin 9.2 g/dL (14.0-18.0); Mean Corpuscular HGB CONC 31.8 g/dL (32.0-36.0); Mean Corpuscular Hemoglobin 30.4 pg (27.0-31.0); Mean Corpuscular Volume 95.4 fL (78.0-98.0); Platelet Count 269 10x3/uL (130-400); Red Blood Cell (RBC) Count 3.03 mill/uL (4.70-6.10)
[2024-05-07 08:03] LABS: Glucose 127 mg/dL (83-110)
[2024-05-07 12:20] LABS: Glucose 181 mg/dL (83-110)
[2024-05-07] MEDS: Polyethylene Glycol 3350 17 GM Packet PO SCH (14:32)
[2024-05-07 17:20] LABS: Glucose 144 mg/dL (83-110)
[2024-05-07] MEDS: Insulin Lispro 100 UNIT/ML 10 ML VIAL SC SCH (17:43)
[2024-05-07 21:16] LABS: Glucose 219 mg/dL (83-110)
[2024-05-08 07:34] LABS: Glucose 154 mg/dL (83-110)
[2024-05-08] MEDS: Insulin Glargine 30 UNITS/0.3 ML VIAL SC SCH (10:10)
[2024-05-08 12:13] LABS: Glucose 179 mg/dL (83-110)
[2024-05-08] MEDS ORDERED: PROPOFOL 20 ML ONE (12:16)
[2024-05-08] MEDS ORDERED: fentaNYL PF 100 MCG/2 ML SYRINGE ONE (12:33)
[2024-05-08] MEDS ORDERED: Etomidate 40 MG (20 mL) VIAL ONE (12:58)
[2024-05-08] MEDS ORDERED: Rocuronium Bromide 10 MG/ML (10ML VIAL) ONE (13:09)
[2024-05-08] MEDS ORDERED: SUCCINYLCHOLINE/SOD CL,ISO/PF 200 MG/10 ML SYRINGE FS ONE (13:09)
[2024-05-08] MEDS ORDERED: Lidocaine 2% PF 5 ML VIAL ONE (13:34)
[2024-05-08] MEDS ORDERED: SUGAMMADEX SODIUM 200 MG/2 ML VIAL ONE (13:34)
[2024-05-08] MEDS ORDERED: Ondansetron PF 4 MG/2 ML Vial ONE (13:34)
[2024-05-08] MEDS ORDERED: Ondansetron HCl/PF 4 MG/2 ML Vial IVP PRN (13:41)
[2024-05-08] MEDS ORDERED: Promethazine HCl 25 MG/ML VIAL IM PRN (13:41)
[2024-05-08] MEDS ORDERED: fentaNYL 50 mcg/mL 1 mL Vial ONE ×2 (14:06→14:14)
[2024-05-08 17:35] LABS: Glucose 179 mg/dL (83-110)
[2024-05-08 21:31] LABS: Glucose 148 mg/dL (83-110)
[2024-05-09 05:26] LABS: #Basophils 0.08 10x3/uL (0.0-0.2); %Basophils 0.6 % (0.0-1.0); %Eosinophils 3.5 % (0.0-10.0); %Lymphocytes 18.2 % (21.0-51.0); %Monocytes 5.4 % (0.0-10.0); %Neutrophils 71.9 % (42.0-75.0); Hematocrit 31.4 % (42.0-52.0); Hemoglobin 9.9 g/dL (14.0-18.0); Mean Corpuscular HGB CONC 31.5 g/dL (32.0-36.0); Mean Corpuscular Hemoglobin 30.4 pg (27.0-31.0); Mean Corpuscular Volume 96.3 fL (78.0-98.0); Mean Platelet Volume 9.7 fL (7.4-10.4); Platelet Count 281 10x3/uL (130-400); RBC Distribution Width 15.3 % (11.5-14.5); Red Blood Cell (RBC) Count 3.26 mill/uL (4.70-6.10)
[2024-05-09 06:27] LABS: ALT (SGPT) 21 U/L (8-55); AST (SGOT) 27 U/L (5-34); Albumin 2.2 g/dL (3.4-4.8); Alkaline Phosphatase 201 U/L (40-110); Anion Gap 14 mmol/L (10-20); BUN (Urea Nitrogen) 70 mg/dL (8.4-25.7); Bilirubin, Total 0.4 mg/dL (0.2-1.2); Calc. Creatinine Clearance 14 mL/min (70-130); Calcium 8.8 mg/dL (7.8-10.44); Carbon Dioxide 24 mmol/L (23-31); Chloride 99 mmol/L (98-107); Estimated GFR 10; Globulin 4.6 g/dL (2.4-3.5); Glucose 150 mg/dL (83-110); Potassium 5.2 mmol/L (3.5-5.1); Protein, Total 6.8 g/dL (5.8-8.1); Sodium 132 mmol/L (136-145)
[2024-05-09 07:40] LABS: Glucose 150 mg/dL (83-110)
[2024-05-09] MEDS ORDERED: HYDROcodone/Acetaminophen 10/325 mg Tablet PO SCH (09:00)
[2024-05-09] MEDS ORDERED: Insulin Glargine 30 UNITS/0.3 ML VIAL SC SCH (09:00)
[2024-05-09] MEDS ORDERED: Heparin 10,000 UNITS/ 10 ML VIAL ONE (09:13)
[2024-05-09 14:08] LABS: Glucose 149 mg/dL (83-110)
[2024-05-09] MEDS: Senokot S 8.6-50 MG TAB PO SCH ×2 (15:06→20:56)
[2024-05-09] MEDS: Insulin Glargine 30 UNITS/0.3 ML VIAL SC SCH (15:08)
[2024-05-09] MEDS: Polyethylene Glycol 3350 17 GM Packet PO SCH (15:09)
[2024-05-09 18:23] LABS: Glucose 247 mg/dL (83-110)
[2024-05-09] MEDS: HYDROcodone/Acetaminophen 10/325 mg Tablet PO SCH (20:55)
[2024-05-09 21:09] LABS: Glucose 228 mg/dL (83-110)
[2024-05-10 08:11] LABS: Glucose 174 mg/dL (83-110)
[2024-05-10] MEDS: Insulin Lispro 100 UNIT/ML 10 ML VIAL SC SCH ×2 (08:50→17:55)
[2024-05-10 09:34] LABS: Anion Gap 17 mmol/L (10-20); BUN (Urea Nitrogen) 49 mg/dL (8.4-25.7); Calc. Creatinine Clearance 18 mL/min (70-130); Calcium 8.7 mg/dL (7.8-10.44); Carbon Dioxide 22 mmol/L (23-31); Chloride 102 mmol/L (98-107); Estimated GFR 13; Glucose 171 mg/dL (83-110); Potassium 4.7 mmol/L (3.5-5.1); Sodium 136 mmol/L (136-145)
[2024-05-10 12:13] LABS: Glucose 180 mg/dL (83-110)
[2024-05-10 17:49] LABS: Glucose 178 mg/dL (83-110)
[2024-05-10] MEDS: Polyethylene Glycol 3350 17 GM Packet PO SCH (21:21)
[2024-05-10 22:18] LABS: Glucose 255 mg/dL (83-110)
[2024-05-11 05:00] LABS: #Basophils 0.08 10x3/uL (0.0-0.2); %Basophils 0.6 % (0.0-1.0); %Eosinophils 4.6 % (0.0-10.0); %Lymphocytes 19.4 % (21.0-51.0); %Monocytes 7.4 % (0.0-10.0); %Neutrophils 67.5 % (42.0-75.0); Hematocrit 26.7 % (42.0-52.0); Hemoglobin 8.6 g/dL (14.0-18.0); Mean Corpuscular HGB CONC 32.2 g/dL (32.0-36.0); Mean Corpuscular Hemoglobin 30.4 pg (27.0-31.0); Mean Corpuscular Volume 94.3 fL (78.0-98.0); Mean Platelet Volume 9.9 fL (7.4-10.4); Platelet Count 274 10x3/uL (130-400); RBC Distribution Width 15.5 % (11.5-14.5); Red Blood Cell (RBC) Count 2.83 mill/uL (4.70-6.10)
[2024-05-11 05:14] LABS: Anion Gap 13 mmol/L (10-20); BUN (Urea Nitrogen) 72 mg/dL (8.4-25.7); Calc. Creatinine Clearance 15 mL/min (70-130); Calcium 8.6 mg/dL (7.8-10.44); Carbon Dioxide 26 mmol/L (23-31); Chloride 97 mmol/L (98-107); Estimated GFR 11; Glucose 256 mg/dL (83-110); Potassium 4.4 mmol/L (3.5-5.1); Sodium 132 mmol/L (136-145)
[2024-05-11] MEDS: Insulin Lispro 100 UNIT/ML 10 ML VIAL SC PRN (05:48)
[2024-05-11 07:48] LABS: Glucose 231 mg/dL (83-110)
[2024-05-11] MEDS: Senokot S 8.6-50 MG TAB PO SCH (08:17)
[2024-05-11] MEDS ORDERED: Heparin 10,000 UNITS/ 10 ML VIAL ONE (11:35)
[2024-05-12 09:23] LABS: Anion Gap 16 mmol/L (10-20); BUN (Urea Nitrogen) 82 mg/dL (8.4-25.7); Calc. Creatinine Clearance 13 mL/min (70-130); Calcium 8.6 mg/dL (7.8-10.44); Carbon Dioxide 22 mmol/L (23-31); Chloride 98 mmol/L (98-107); Estimated GFR 8; Glucose 197 mg/dL (83-110); Potassium 4.5 mmol/L (3.5-5.1); Sodium 131 mmol/L (136-145)
[2024-05-13 06:26] LABS: %Basophils 0.9 % (0.0-1.0); %Lymphocytes 21.4 % (21.0-51.0); %Monocytes 6.8 % (0.0-10.0); %Neutrophils 65.5 % (42.0-75.0); Hemoglobin 8.3 g/dL (14.0-18.0); Mean Corpuscular HGB CONC 31.9 g/dL (32.0-36.0); Mean Corpuscular Hemoglobin 30.2 pg (27.0-31.0); Mean Corpuscular Volume 94.5 fL (78.0-98.0); Mean Platelet Volume 9.2 fL (7.4-10.4); Platelet Count 260 10x3/uL (130-400); RBC Distribution Width 15.2 % (11.5-14.5); Red Blood Cell (RBC) Count 2.75 mill/uL (4.70-6.10)
[2024-05-13 06:42] LABS: Anion Gap 16 mmol/L (10-20); BUN (Urea Nitrogen) 93 mg/dL (8.4-25.7); Calc. Creatinine Clearance 12 mL/min (70-130); Calcium 8.8 mg/dL (7.8-10.44); Carbon Dioxide 21 mmol/L (23-31); Chloride 99 mmol/L (98-107); Estimated GFR 8; Glucose 145 mg/dL (83-110); Potassium 4.7 mmol/L (3.5-5.1); Sodium 131 mmol/L (136-145)
[2024-05-14 05:55] LABS: #Basophils 0.05 10x3/uL (0.0-0.2); %Basophils 0.4 % (0.0-1.0); %Eosinophils 4.6 % (0.0-10.0); %Lymphocytes 20.3 % (21.0-51.0); %Monocytes 7.3 % (0.0-10.0); %Neutrophils 67.1 % (42.0-75.0); Hematocrit 26.8 % (42.0-52.0); Hemoglobin 8.9 g/dL (14.0-18.0); Mean Corpuscular HGB CONC 33.2 g/dL (32.0-36.0); Mean Corpuscular Hemoglobin 31.1 pg (27.0-31.0); Mean Corpuscular Volume 93.7 fL (78.0-98.0); Mean Platelet Volume 9.4 fL (7.4-10.4); Platelet Count 274 10x3/uL (130-400); RBC Distribution Width 15.2 % (11.5-14.5); Red Blood Cell (RBC) Count 2.86 mill/uL (4.70-6.10)
[2024-05-14 06:27] LABS: Anion Gap 14 mmol/L (10-20); BUN (Urea Nitrogen) 106 mg/dL (8.4-25.7); Calc. Creatinine Clearance 11 mL/min (70-130); Calcium 9.1 mg/dL (7.8-10.44); Carbon Dioxide 21 mmol/L (23-31); Chloride 101 mmol/L (98-107); Estimated GFR 8; Glucose 171 mg/dL (83-110); Potassium 4.9 mmol/L (3.5-5.1); Sodium 131 mmol/L (136-145)
[2024-05-14] MEDS ORDERED: Heparin 10,000 UNITS/ 10 ML VIAL ONE (09:10)
[2024-05-15 05:37] LABS: %Basophils 0.9 % (0.0-1.0); %Eosinophils 6.1 % (0.0-10.0); %Lymphocytes 21.4 % (21.0-51.0); %Monocytes 7.6 % (0.0-10.0); %Neutrophils 63.6 % (42.0-75.0); Hemoglobin 8.8 g/dL (14.0-18.0); Mean Corpuscular HGB CONC 32.6 g/dL (32.0-36.0); Mean Corpuscular Hemoglobin 30.3 pg (27.0-31.0); Mean Corpuscular Volume 93.1 fL (78.0-98.0); Mean Platelet Volume 9.3 fL (7.4-10.4); Platelet Count 290 10x3/uL (130-400); RBC Distribution Width 15.3 % (11.5-14.5)
[2024-05-15 05:57] LABS: Anion Gap 14 mmol/L (10-20); BUN (Urea Nitrogen) 43 mg/dL (8.4-25.7); Calc. Creatinine Clearance 20 mL/min (70-130); Calcium 8.4 mg/dL (7.8-10.44); Carbon Dioxide 29 mmol/L (23-31); Chloride 96 mmol/L (98-107); Estimated GFR 14; Glucose 143 mg/dL (83-110); Potassium 3.9 mmol/L (3.5-5.1); Sodium 135 mmol/L (136-145)
[2024-05-15 14:07] VITALS: TEMP 98.9
[2024-05-15 17:27] VITALS: BP 140/67
== END 2024-05-15 17:28 | DRG 239 ==
LOC: T4-A 19:19 → INTOOBSV 19:19 → OBSVTOIN 05-02 16:01
PROVIDERS: ADMIT Student in an Organized Health Care Education/Training Program; ATTEND Student in an Organized Health Care Education/Training Program
PROC: 5A1D70Z Performance of Urinary Filtration, Intermittent, Less than 6 Hours Per Day (ICD-10-PCS; principal; 2024-05-02)
PROC: 0Y6H0Z1 Detachment at Right Lower Leg, High, Open Approach (ICD-10-PCS; 2024-05-08)
DX: E11.52 Type 2 diabetes mellitus with diabetic peripheral angiopathy with gangrene (principal); N18.6 End stage renal disease; I13.2 Hypertensive heart and chronic kidney disease with heart failure and with stage 5 chronic kidney disease, or end stage renal disease; I50.32 Chronic diastolic (congestive) heart failure; N25.81 Secondary hyperparathyroidism of renal origin; E11.621 Type 2 diabetes mellitus with foot ulcer; E03.9 Hypothyroidism, unspecified; E11.22 Type 2 diabetes mellitus with diabetic chronic kidney disease; E78.5 Hyperlipidemia, unspecified; I25.10 Atherosclerotic heart disease of native coronary artery without angina pectoris; D63.1 Anemia in chronic kidney disease; E83.39 Other disorders of phosphorus metabolism; E88.09 Other disorders of plasma-protein metabolism, not elsewhere classified; K59.00 Constipation, unspecified; Z85.51 Personal history of malignant neoplasm of bladder; Z92.21 Personal history of antineoplastic chemotherapy; Z79.82 Long term (current) use of aspirin; Z79.899 Other long term (current) drug therapy; Z79.4 Long term (current) use of insulin; Z79.890 Hormone replacement therapy; Z79.891 Long term (current) use of opiate analgesic; Z99.2 Dependence on renal dialysis; Z95.1 Presence of aortocoronary bypass graft
CPT/HCPCS: 36415; 36416; 80048; 82947; 85025; 88307; 88311; 90935; 93005; 93010; 93923; 96374; 96375; 96376; 97139; G0257; G0378; J0360; J1644; J1815; J2185; J2405; J2704; J3010; Q5105

== ENCOUNTER 2025-02-08 12:12 | Emergency (ER) | payer MEDICARE, BC ==
[2025-02-08 13:02] LABS: #Basophils 0.06 10x3/uL (0.0-0.2); #Eosinophils 0.36 10x3/uL (0.0-0.7); #Monocytes 0.80 10x3/uL (0.11-0.59); #Neutrophils 5.96 10x3/uL (1.40-6.50); %Basophils 0.7 % (0.0-1.0); %Eosinophils 4.3 % (0.0-10.0); %Lymphocytes 14.1 % (21.0-51.0); %Monocytes 9.5 % (0.0-10.0); %Neutrophils 71.2 % (42.0-75.0); Hematocrit 28.2 % (42.0-52.0); Hemoglobin 9.1 g/dL (14.0-18.0); Mean Corpuscular Hemoglobin 31.5 pg (27.0-31.0); Mean Corpuscular Volume 97.6 fL (78.0-98.0); Platelet Count 137 10x3/uL (130-400); Red Blood Cell (RBC) Count 2.89 mill/uL (4.70-6.10); White Blood Cell (WBC) Count 8.38 10x3/uL (4.8-10.8)
[2025-02-08 13:33] LABS: ALT (SGPT) 11 U/L (Less than 45); AST (SGOT) 24 U/L (11-34); Albumin 3.4 g/dL (3.1-4.5); Alkaline Phosphatase 122 U/L (40-110); Anion Gap 17 mmol/L (10-20); BUN (Urea Nitrogen) 32 mg/dL (8.4-25.7); Bilirubin, Total 0.6 mg/dL (0.3-1.2); Calc. Creatinine Clearance 0 mL/min (70-130); Calcium 8.2 mg/dL (7.8-10.44); Carbon Dioxide 29 mmol/L (23-31); Chloride 93 mmol/L (98-107); Globulin 4.2 g/dL (2.4-3.5); Glucose 65 mg/dL (83-110); Potassium 3.9 mmol/L (3.5-5.1); Sodium 135 mmol/L (136-145)
[2025-02-08 13:35] LABS: Troponin I 0.096 ng/mL (< 0.028)
[2025-02-08 15:20] LABS: Troponin I 0.083 ng/mL (< 0.028)
== END 2025-02-08 15:30 | disposition home or self-care (01) ==
LOC: ERS 12:12
DX: R55 Syncope and collapse (principal); E86.9 Volume depletion, unspecified; E11.9 Type 2 diabetes mellitus without complications; I10 Essential (primary) hypertension; E78.5 Hyperlipidemia, unspecified; Z99.2 Dependence on renal dialysis
CPT/HCPCS: 36415; 71045; 80053; 83880; 84484; 85025; 93005